=== PATIENT | male | born 1960 | race African-American/Black ===

== ENCOUNTER 2017-09-27 15:34 | Emergency (ER) | payer OTHER ==
[~2017-09-27] VITALS: Ht 175.3 cm; Wt 89.6 kg
[2017-09-27] MEDS ORDERED: MOTRIN600 MG PO (20:46)
[2017-09-27] MEDS ORDERED: ULTRAM50 MG PO (20:46)
[2017-09-27] MEDS ORDERED: ROBAXIN750 MG PO (20:46)
[2017-09-27 21:10] VITALS: BP 142/74
== END 2017-09-27 21:10 | disposition home or self-care (01) ==
LOC: EME 15:34
DX: S16.1XXA Strain of muscle, fascia and tendon at neck level, initial encounter (principal); M62.838 Other muscle spasm; X50.1XXA Overexertion from prolonged static or awkward postures, initial encounter; Z88.0 Allergy status to penicillin; Z87.891 Personal history of nicotine dependence; Z88.5 Allergy status to narcotic agent
CPT/HCPCS: 72040; 99281; 99284; J1885

== ENCOUNTER 2018-02-07 00:58 | Day surgery (SDC) | payer OTHER ==
[~2018-02-07] VITALS: Ht 175.3 cm; Wt 89.2 kg
[~2018-02-07 00:58] MED LIST: MOTRIN600 MG PO; ROBAXIN750 MG PO; ULTRAM50 MG PO
[2018-02-07 00:59] VITALS: BP 124/69
== END 2018-02-07 07:50 | disposition home or self-care (01) ==
LOC: EME 00:58 → SDC 04:36
PROC: 0CCM8ZZ Extirpation of Matter from Pharynx, Via Natural or Artificial Opening Endoscopic (ICD-10-PCS; principal; 2018-02-07)
DX: T17.228A Food in pharynx causing other injury, initial encounter (principal); Z87.891 Personal history of nicotine dependence; Z88.0 Allergy status to penicillin; X58.XXXA Exposure to other specified factors, initial encounter; Y93.89 Activity, other specified; Y92.511 Restaurant or cafe as the place of occurrence of the external cause; Y99.9 Unspecified external cause status
CPT/HCPCS: 70360; 71046; 99281; 99283; J0330; J1100; J2405; J3010